=== PATIENT | female | born 1980 | race Caucasian/White ===

== ENCOUNTER 2019-12-28 12:19 | Emergency (ER) | payer SELFPAY ==
[~2019-12-28] VITALS: Ht 170.2 cm; Wt 78.5 kg
[2019-12-28 12:49] VITALS: Ht 170.2 cm; Wt 78.5 kg
[2019-12-28 13:53] VITALS: BP 144/88
== END 2019-12-28 13:53 | disposition home or self-care (01) ==
LOC: ED 12:19
DX: I83.891 Varicose veins of right lower extremity with other complications (principal); S81.831A Puncture wound without foreign body, right lower leg, initial encounter; I10 Essential (primary) hypertension; X58.XXXA Exposure to other specified factors, initial encounter; Y93.89 Activity, other specified; Y92.89 Other specified places as the place of occurrence of the external cause; Y99.8 Other external cause status

== ENCOUNTER 2019-12-31 12:39 | Emergency (ER) | payer MEDICAID ==
[~2019-12-31] VITALS: Ht 170.2 cm; Wt 80.7 kg
[2019-12-31 12:46] VITALS: Ht 170.2 cm; Wt 80.7 kg
[2019-12-31 15:59] VITALS: BP 159/91
== END 2019-12-31 15:59 | disposition home or self-care (01) ==
LOC: ED 12:39
DX: S81.801A Unspecified open wound, right lower leg, initial encounter (principal); I10 Essential (primary) hypertension; X58.XXXA Exposure to other specified factors, initial encounter; Y93.89 Activity, other specified; Y92.89 Other specified places as the place of occurrence of the external cause; Y99.8 Other external cause status
CPT/HCPCS: J2001

== ENCOUNTER 2020-01-07 12:42 | Emergency (ER) | payer MEDICAID ==
[~2020-01-07] VITALS: Ht 162.6 cm; Wt 79.8 kg
[2020-01-07 12:53] VITALS: Ht 162.6 cm; Wt 79.8 kg
[2020-01-07 14:26] VITALS: BP 124/74
== END 2020-01-07 14:22 | disposition home or self-care (01) ==
LOC: ED 12:42
DX: I10 Essential (primary) hypertension (principal); Z48.01 Encounter for change or removal of surgical wound dressing

== ENCOUNTER 2020-01-10 13:18 | Emergency (ER) | payer MEDICAID ==
[~2020-01-10] VITALS: Ht 172.7 cm; Wt 78.9 kg
[2020-01-10 13:52] VITALS: BP 152/77; Ht 172.7 cm; Wt 78.9 kg
== END 2020-01-10 14:36 | disposition home or self-care (01) ==
LOC: ED 13:18
DX: S81.801D Unspecified open wound, right lower leg, subsequent encounter (principal); L08.9 Local infection of the skin and subcutaneous tissue, unspecified; I10 Essential (primary) hypertension; X58.XXXD Exposure to other specified factors, subsequent encounter

== ENCOUNTER 2020-01-21 14:09 | Emergency (ER) | payer MEDICAID ==
[~2020-01-21] VITALS: Ht 177.8 cm; Wt 79.8 kg
[2020-01-21 14:14] VITALS: Ht 177.8 cm; Wt 79.8 kg
[2020-01-21 15:03] VITALS: BP 138/83
== END 2020-01-21 15:03 | disposition home or self-care (01) ==
LOC: ED 14:09
DX: I83.91 Asymptomatic varicose veins of right lower extremity (principal); I10 Essential (primary) hypertension